=== PATIENT | female | born 1990 | race African-American/Black ===

== ENCOUNTER 2017-03-17 22:40 | Emergency (ER) | payer MEDICAID ==
[~2017-03-17] VITALS: Ht 160 cm; Wt 109.2 kg
[~2017-03-17 22:40] MED LIST: MEDDOSEPAK PO; NAPROSYN500 MG PO; PRENATA3 PO; STOOL SOFTE1; TORADOL PO; ZOFRAN ODT4 MG PO; ZPAK PO
[2017-03-18] MEDS ORDERED: AUGMENTIN875TAB PO (00:26)
[2017-03-18] MEDS ORDERED: PERCOCET 5/325M1 TAB PO (00:26)
[2017-03-18 01:00] VITALS: BP 118/77
== END 2017-03-18 01:05 | disposition home or self-care (01) | DRG 153 ==
LOC: ED 22:40
DX: H66.91 Otitis media, unspecified, right ear (principal); H92.01 Otalgia, right ear

== ENCOUNTER 2017-04-03 13:32 | Emergency (ER) | payer MEDICAID ==
[~2017-04-03] VITALS: Ht 160 cm; Wt 115.0 kg
[~2017-04-03 13:32] MED LIST changes: +AUGMENTIN875TAB PO; +PERCOCET 5/325M1 TAB PO
[2017-04-03 13:51] VITALS: BP 114/72
== END 2017-04-03 14:35 | disposition left against medical advice (07) | DRG 951 ==
LOC: ED 13:32 → LWOBS 14:35
DX: Z91.19 Patient's noncompliance with other medical treatment and regimen (principal)

== ENCOUNTER 2017-07-29 02:32 | Emergency (ER) | payer OTHER ==
[~2017-07-29] VITALS: Ht 160 cm; Wt 110.2 kg
--- NOTE | 2017-07-29 03:01 | NUR ---
breathing treatment given. breathing tech. for good deposition to the lungs.
[2017-07-29] MEDS ORDERED: PUMP (03:07)
[2017-07-29 03:31] LABS: URINE BILIRUBIN - DIPSTICK NEGATIVE (NEGATIVE); URINE BLOOD DIPSTICK NEGATIVE (NEGATIVE); URINE CLARITY SLIGHT CLOUDY; URINE COLOR YELLOW; URINE GLUCOSE - DIPSTICK NEGATIVE (NEGATIVE); URINE KETONE TRACE mg/dL (NEGATIVE); URINE LEUK ESTERASE NEGATIVE (NEGATIVE); URINE NITRITE - DIPSTICK NEGATIVE (Negative); URINE PROTEIN - DIPSTICK NEGATIVE (NEG-TRACE); URINE SPECIFIC GRAVITY 1.025; URINE UROBILINOGEN - DIPSTICK 0.2 E.U./dL (0.2)
[2017-07-29 03:50] VITALS: BP 114/73
== END 2017-07-29 03:50 | disposition home or self-care (01) | DRG 203 ==
LOC: ED 02:32
PROVIDERS: Emergency Medicine
DX: J45.901 Unspecified asthma with (acute) exacerbation (principal); R06.02 Shortness of breath

== ENCOUNTER 2018-04-13 04:21 | Emergency (ER) | payer MEDICAID ==
[~2018-04-13] VITALS: Ht 160 cm; Wt 115.0 kg
[~2018-04-13 04:21] MED LIST changes: +PUMP
[2018-04-13 04:44] LABS: URINE BILIRUBIN - DIPSTICK NEGATIVE (NEGATIVE); URINE BLOOD DIPSTICK NEGATIVE (NEGATIVE); URINE COLOR YELLOW; URINE GLUCOSE - DIPSTICK NEGATIVE (NEGATIVE); URINE KETONE 40 mg/dL (NEGATIVE); URINE LEUK ESTERASE NEGATIVE (NEGATIVE); URINE NITRITE - DIPSTICK NEGATIVE (Negative); URINE PROTEIN - DIPSTICK NEGATIVE (NEG-TRACE); URINE UROBILINOGEN - DIPSTICK 0.2 E.U./dL (0.2)
[2018-04-13 04:45] LABS: URINE CLARITY CLEAR
[2018-04-13 05:37] LABS: HEMATOCRIT 35.1 % (37.0-47.0); HEMOGLOBIN 11.2 g/dl (12.0-16.0); IMMATURE GRANULOCYTES 0.2 % (0.0-1.0); MEAN CELL VOLUME 77.8 fL CALC (80.0-100.0); MEAN CORPUSCULAR HGB 24.8 pG CALC (26.0-32.0); MEAN CORPUSCULAR HGB CONC 31.9 g/L CALC (32.0-36.0); NEUT# 2.95 thou/uL (2.00-7.15); RED BLOOD COUNT 4.51 mill/uL (4.20-5.60); RED CELL DISTRI WIDTH 16.8 % (11.5-15.5)
[2018-04-13 05:59] LABS: ALKALINE PHOSPHATASE 55 u/l (38-126); AMYLASE 86 u/l (30-110); BILIRUBIN, TOTAL 0.3 mg/dL (0.0-1.4); BUN 9 mg/dL (7-17); BUN/CREATININE RATIO 11 (12-20 (CALC)); CARBON DIOXIDE 23 mmol/l (22-30); CHLORIDE 105 mmol/l (95-108); CREATININE 0.8 mg/dL (0.5-1.0); GFR > 60 ML/MIN (>=60 (CALC)); GFR FOR AFR.AMER. > 60 ML/MIN (>=60 (CALC)); LIPASE 150 u/l (23-300); SGOT/AST 30 u/l (14-36); SGPT/ALT 24 u/l (9-52); SODIUM 138 mmol/l (137-146); TOTAL PROTEIN 7.7 g/dL (6.3-8.2)
[2018-04-13 06:01] LABS: ANION GAP 13 (6-22 (CALC)); POTASSIUM 3.4 mmol/l (3.5-5.1)
[2018-04-13] MEDS ORDERED: ONDANSETRON4 MG PO (06:17)
[2018-04-13 06:25] VITALS: BP 120/75
== END 2018-04-13 06:33 | disposition home or self-care (01) | DRG 866 ==
LOC: ED 04:21
PROVIDERS: Emergency Medicine
DX: B34.9 Viral infection, unspecified (principal); R11.2 Nausea with vomiting, unspecified